=== PATIENT | female | born 1945 | race Caucasian/White ===

== ENCOUNTER 2020-12-27 22:09 | Inpatient (IN) ==
[2020-12-27 22:42] LABS: Basophils % 0.2 %; Hemoglobin 14.9 g/dL (11.5-15.4); Immature Granulocytes % 0.7 % (0-4); Lymphocytes # 0.6 K/mcL (0.6-4.6); Lymphocytes % 13.3 %; Mean Corpuscular HGB Conc 32.4 g/dL (31.6-35.5); Mean Corpuscular Hemoglobin 25.8 pg (28.0-33.3); Mean Corpuscular Volume 79.7 fL (83.0-100.0); Mean Platelet Volume 9.4 fL (9.4-12.4); Monocytes # 0.2 K/mcL (0.0-1.3); Neutrophils # 3.5 K/mcL (1.6-8.9); Platelet Count 233 K/mcL (140-400); Red Blood Count 5.77 M/mcL (3.82-4.97); Red Cell Distribution Width 15.4 % (11.5-14.5); Segmented Neutrophils % 80.8 %; White Blood Count 4.4 K/mcL (4.3-11.1)
[2020-12-27 22:49] LABS: VBG HCO3 26 mEq/L (21-27); VBG PCO2 43 mmHg (41-51); VBG PO2 29 mmHg (25-50)
[2020-12-27 23:07] LABS: BUN/Creatinine Ratio 31 (6-26); Blood Urea Nitrogen 25 mg/dL (8-23); Calcium 8.8 mg/dL (8.6-10.3); Carbon Dioxide 23 mEq/L (23-29); Chloride 94 mEq/L (98-107); Glucose 108 mg/dL (70-105); Osmolality,Calculated 275 (280-300); Potassium 3.8 mEq/L (3.5-5.1); Sodium 130 mEq/L (136-145); eGFR For African Americans > 60 (> 60); eGFR For Non-African Americans > 60 (> 60)
[2020-12-27 23:13] LABS: Troponin I 0.05 ng/mL (< 0.04)
[2020-12-27] MEDS ORDERED: Isovue-370 500 ML BOTTLE IVP ONE (23:26)
[2020-12-28] MEDS ORDERED: 0.9 % Sodium Chloride 1,000 ML IVC ONE (01:33)
[2020-12-28] MEDS ORDERED: Melatonin 3 MG TABLET PO PRN (01:42)
[2020-12-28] MEDS ORDERED: Naloxone 0.4 MG/ML INJ IVP PRN (01:42)
[2020-12-28] MEDS ORDERED: Perflutren Lipid Microsphere 1.3 ML in 0.9 % Sodium Chloride 8.7 ML IVP PRN (01:47)
[2020-12-28] MEDS: cefTRIAXone 1,000 MG in Water for inj. (sterile) 10 ML IVP SCH (03:54)
[2020-12-28] MEDS: Azithromycin 500 MG in 0.9 % Sodium Chloride 250 ML IVPB SCH (03:54)
[2020-12-28] MEDS: Ipratropium 1 PUFF INHALER IH SCH ×4 (05:21→20:46)
[2020-12-28 05:25] LABS: Hematocrit 41.2 % (35.3-44.9); Hemoglobin 13.4 g/dL (11.5-15.4); Mean Corpuscular HGB Conc 32.5 g/dL (31.6-35.5); Mean Corpuscular Hemoglobin 26.1 pg (28.0-33.3); Mean Corpuscular Volume 80.3 fL (83.0-100.0); Mean Platelet Volume 9.7 fL (9.4-12.4); Platelet Count 226 K/mcL (140-400); Red Blood Count 5.13 M/mcL (3.82-4.97); Red Cell Distribution Width 15.4 % (11.5-14.5); White Blood Count 4.3 K/mcL (4.3-11.1)
[2020-12-28 05:44] LABS: BUN/Creatinine Ratio 36 (6-26); Blood Urea Nitrogen 26 mg/dL (8-23); Calcium 8.1 mg/dL (8.6-10.3); Carbon Dioxide 22 mEq/L (23-29); Chloride 98 mEq/L (98-107); Glucose 104 mg/dL (70-105); Magnesium 1.7 mg/dL (1.6-2.6); Osmolality,Calculated 277 (280-300); Potassium 3.5 mEq/L (3.5-5.1); Sodium 131 mEq/L (136-145); eGFR For African Americans > 60 (> 60); eGFR For Non-African Americans > 60 (> 60)
[2020-12-28] MEDS ORDERED: *HR* Enoxaparin 40 MG/0.4 ML SYRINGE SQ SCH (06:00)
[2020-12-28] MEDS ORDERED: *HR* Metoprolol 5 MG/5 ML VIAL IVP ONE (21:20)
[2020-12-28] MEDS: Levalbuterol 1 PUFF INHALER IH SCH (22:08)
[2020-12-29] MEDS ORDERED: *HR* Heparin 5,000 UNIT/ML VIAL IVP PRN ×2 (01:42)
[2020-12-29] MEDS ORDERED: *HR* Heparin 5,000 UNIT/ML VIAL IVP ONE (01:42)
[2020-12-29] MEDS ORDERED: Heparin 25,000UNIT/250ML 1/2NS 25,000 UNIT/250 ML IV.SOLN IVC SCH (01:45)
[2020-12-29 03:06] LABS: Basophils % 0.4 %; Hematocrit 42.8 % (35.3-44.9); Hemoglobin 13.8 g/dL (11.5-15.4); Immature Granulocytes % 0.8 % (0-4); Lymphocytes # 0.6 K/mcL (0.6-4.6); Lymphocytes % 13.6 %; Mean Corpuscular HGB Conc 32.2 g/dL (31.6-35.5); Mean Corpuscular Hemoglobin 25.8 pg (28.0-33.3); Mean Platelet Volume 9.8 fL (9.4-12.4); Monocytes # 0.2 K/mcL (0.0-1.3); Monocytes % 3.6 %; Platelet Count 252 K/mcL (140-400); Red Blood Count 5.35 M/mcL (3.82-4.97); Red Cell Distribution Width 15.9 % (11.5-14.5); Segmented Neutrophils % 81.6 %; White Blood Count 4.7 K/mcL (4.3-11.1)
[2020-12-29 03:10] LABS: Neutrophils # 3.8 K/mcL (1.6-8.9)
[2020-12-29 03:16] LABS: Heparin anti-factor XA UFH 0.05 IU/mL (0.30-0.70); INR 1.3; Prothrombin Time 14.5 Seconds (9.4-12.1)
[2020-12-29 03:29] LABS: Platelet Estimate Normal (Normal)
[2020-12-29] MEDS: Azithromycin 500 MG in 0.9 % Sodium Chloride 250 ML IVPB SCH (03:52)
[2020-12-29 03:53] LABS: Ferritin > 1500 ng/mL (10-120)
[2020-12-29] MEDS: cefTRIAXone 1,000 MG in Water for inj. (sterile) 10 ML IVP SCH (03:53)
[2020-12-29 04:13] LABS: BUN/Creatinine Ratio 30 (6-26); Blood Urea Nitrogen 24 mg/dL (8-23); C-Reactive Protein 120 mg/L (Less than 10); Calcium 8.6 mg/dL (8.6-10.3); Carbon Dioxide 21 mEq/L (23-29); Chloride 98 mEq/L (98-107); Glucose 117 mg/dL (70-105); Osmolality,Calculated 277 (280-300); Potassium 3.6 mEq/L (3.5-5.1); Sodium 131 mEq/L (136-145); eGFR For African Americans > 60 (> 60); eGFR For Non-African Americans > 60 (> 60)
[2020-12-29] MEDS: Ipratropium 1 PUFF INHALER IH SCH ×4 (05:16→20:58)
[2020-12-29] MEDS: Levalbuterol 1 PUFF INHALER IH SCH ×4 (05:17→20:58)
[2020-12-29] MEDS: DilTIAZem CD (24hr) 180 MG CAP.ER.24H PO SCH (13:25)
[2020-12-29] MEDS: *HR* Enoxaparin 100 MG/ML SYRINGE SQ SCH (17:37)
[2020-12-29 23:06] LABS: Bacteria,Urine Moderate per hpf (None-Few); Bilirubin,Urine Negative (Negative); Blood,Urine Moderate (Negative); Clarity,Urine Turbid (Clear); Color,Urine Yellow (Yellow); Glucose,Urine (UA) Normal (Normal); Ketones,Urine 10 mg/dL (Negative); Leukocyte Esterase,Urine Large (Negative); Mucus,Urine Moderate per lpf (None-Few); Nitrite,Urine Positive (Negative); Protein,Urine 200 mg/dL (Neg-Trace); RBC,Urine 0-3 per hpf (0-3); Specific Gravity,Urine 1.025 (1.010-1.025); Squamous Epithelial Cell,Urine Few per hpf (None-Few); WBC,Urine TNTC per hpf (0-3)
[2020-12-30] MEDS: Levalbuterol 1 PUFF INHALER IH SCH ×4 (04:35→20:39)
[2020-12-30] MEDS: Ipratropium 1 PUFF INHALER IH SCH ×4 (04:35→20:38)
[2020-12-30] MEDS: cefTRIAXone 1,000 MG in Water for inj. (sterile) 10 ML IVP SCH (04:42)
[2020-12-30] MEDS: *HR* Enoxaparin 100 MG/ML SYRINGE SQ SCH ×2 (04:43→17:50)
[2020-12-30] MEDS: Azithromycin 500 MG in 0.9 % Sodium Chloride 250 ML IVPB SCH (04:43)
[2020-12-30 09:08] LABS: Hematocrit 43.9 % (35.3-44.9); Hemoglobin 14.1 g/dL (11.5-15.4); Mean Corpuscular HGB Conc 32.1 g/dL (31.6-35.5); Mean Corpuscular Hemoglobin 25.5 pg (28.0-33.3); Mean Corpuscular Volume 79.4 fL (83.0-100.0); Mean Platelet Volume 10.2 fL (9.4-12.4); Platelet Count 270 K/mcL (140-400); Red Blood Count 5.53 M/mcL (3.82-4.97); Red Cell Distribution Width 15.9 % (11.5-14.5); White Blood Count 4.6 K/mcL (4.3-11.1)
[2020-12-30 09:27] LABS: BUN/Creatinine Ratio 34 (6-26); Blood Urea Nitrogen 23 mg/dL (8-23); C-Reactive Protein 81 mg/L (Less than 10); Calcium 8.5 mg/dL (8.6-10.3); Carbon Dioxide 24 mEq/L (23-29); Chloride 99 mEq/L (98-107); Glucose 122 mg/dL (70-105); Lactate Dehydrogenase 258 Units/L (140-271); Osmolality,Calculated 281 (280-300); Potassium 3.7 mEq/L (3.5-5.1); Sodium 133 mEq/L (136-145); eGFR For African Americans > 60 (> 60); eGFR For Non-African Americans > 60 (> 60)
[2020-12-30] MEDS: DilTIAZem CD (24hr) 180 MG CAP.ER.24H PO SCH (09:47)
[2020-12-30 10:05] LABS: Lymphocytes # 0.8 K/mcL (0.6-4.6); Monocytes # 0.1 K/mcL (0.0-1.3); Neutrophils # 3.7 K/mcL (1.6-8.9); Reactive Lymphocytes Present (Not Present)
[2020-12-30 10:06] LABS: Platelet Estimate Normal (Normal)
[2020-12-30 10:40] LABS: Ferritin > 1500 ng/mL (10-120)
[2020-12-30] MEDS: Apixaban 5 MG TABLET PO SCH (20:27)
[2020-12-31] MEDS: Levalbuterol 1 PUFF INHALER IH SCH ×3 (03:51→16:14)
[2020-12-31] MEDS: Ipratropium 1 PUFF INHALER IH SCH ×3 (03:51→16:14)
[2020-12-31] MEDS: cefTRIAXone 1,000 MG in Water for inj. (sterile) 10 ML IVP SCH (04:04)
[2020-12-31] MEDS: Azithromycin 500 MG in 0.9 % Sodium Chloride 250 ML IVPB SCH (04:04)
[2020-12-31] MEDS: Apixaban 5 MG TABLET PO SCH (09:58)
[2020-12-31] MEDS: DilTIAZem CD (24hr) 180 MG CAP.ER.24H PO SCH (09:58)
[2020-12-31 10:16] LABS: C-Reactive Protein 46 mg/L (Less than 10); Ferritin 1316 ng/mL (10-120); Lactate Dehydrogenase 390 Units/L (140-271)
[2020-12-31 12:22] VITALS: TEMP 97.7
[2020-12-31 17:03] VITALS: BP 134/77; PULSE 69
[2020-12-31 17:58] VITALS: O2SAT 93
== END 2020-12-31 19:30 | disposition home health service (06) | DRG 177 ==
LOC: 3NENU 22:09 → EMEROOARM 22:09 → 3NENU 12-28 03:09 → SUATTDRO 12-28 11:30
PROVIDERS: ADMIT Student in an Organized Health Care Education/Training Program; ATTEND Hospitalist